=== PATIENT | male | born 2000 | race Caucasian/White ===

== ENCOUNTER 2019-09-22 17:17 | Emergency (ER) | payer BC ==
[~2019-09-22] VITALS: Ht 195.6 cm; Wt 83.0 kg
[2019-09-22 17:30] VITALS: BP 143/82
[2019-09-22 17:41] LABS: APPEARANCE,URINE Clear (CLEAR); BILIRUBIN,URINE Negative (NEGATIVE); BLOOD, URINE Negative Ery/uL (NEGATIVE); COLOR,URINE Yellow (YELLOW); KETONES,URINE Negative (NEGATIVE); LEUKOCYTE ESTERASE ,URINE Negative (NEGATIVE); NITRITE, URINE Negative (NEGATIVE); PH,URINE 5.5 (5.0-8.0); PROTEIN,URINE Negative (NEGATIVE); UGLUCOSE Negative (NEGATIVE); UROBILINOGEN,URINE 0.2 EU/dL (0.2)
[2019-09-22] MEDS ORDERED: AZITHROMYCIN 250 MG TABLET ONE (18:27)
[2019-09-22] MEDS ORDERED: LIDOCAINE /MPF 1% VIAL 5 ML VIAL ONE (18:27)
[2019-09-22] MEDS ORDERED: CEFTRIAXONE 500 MG VIAL ONE (18:27)
[2019-09-22] MEDS ORDERED: LIDOCAINE 1% INJ 50 ML MDV IJ ONE (18:30)
[2019-09-22] MEDS ORDERED: CEFTRIAXONE 500 MG VIAL IM ONE (18:30)
[2019-09-22] MEDS ORDERED: AZITHROMYCIN 250 MG TABLET PO ONE (18:30)
--- NOTE | 2019-09-22 18:37 | NUR ---
LIDOCAINE MIXED WITH ROCEPHIN IM.
== END 2019-09-22 18:38 | disposition home or self-care (01) ==
LOC: ER 17:21
DX: N45.2 Orchitis (principal); Z98.890 Other specified postprocedural states
CPT/HCPCS: 76870; 81001; 87491; 87591; 96372; 99284; J0696; J3490; 81000-TC

== ENCOUNTER 2019-09-23 13:56 | Emergency (ER) | payer BC ==
[~2019-09-23] VITALS: Ht 195.6 cm; Wt 83.0 kg
[2019-09-23 14:07] VITALS: BP 122/51
--- NOTE | 2019-09-23 14:22 | NUR ---
AT BEDSIDE FOR EVAL.
[2019-09-23] MEDS ORDERED: KETOROLAC TROMETHAMINE INJ 30 MG/ML VIAL ONE (14:29)
[2019-09-23] MEDS ORDERED: KETOROLAC TROMETHAMINE INJ 60 MG/2 ML VIAL IM ONE (14:30)
--- NOTE | 2019-09-23 14:33 | NUR ---
Patient discharged to home in stable condition. Written and verbal after care instructions given. Patient verbalizes understanding of instruction.
== END 2019-09-23 14:34 | disposition home or self-care (01) ==
LOC: ER 13:59
DX: N45.2 Orchitis (principal); N43.3 Hydrocele, unspecified; Z98.890 Other specified postprocedural states; Z60.2 Problems related to living alone
CPT/HCPCS: 96372; 99283; J1885